=== PATIENT | female | born 1970 ===

== ENCOUNTER 2018-04-12 03:10 | Emergency (ER) | payer OTHER ==
[2018-04-12 04:03] VITALS: BMI 34.8
[2018-04-12 04:11] VITALS: PULSE 78; RESP 18; O2SAT 100
--- NOTE | 2018-04-12 04:40 | ED PDOC ---
Arrival/HPI - General Chief Complaint: Eye Problem Time Seen by Provider: 04/12/18 03:59 Past Medical History - Cardiac Hx Cardiac Disorders: No - Endocrine/Metabolic Hx Hyperthyroidism: Yes - Psychiatric Hx Substance Use: No Family/Social History Smoking Status: Never Smoked Hx Alcohol Use: No Hx Substance Use: No Allergies/Home Meds Allergies/Adverse Reactions: Allergies No Known Allergies Allergy (Unverified 01/16/14 13:15) Physical Exam Vital Signs Temp Pulse Resp BP Pulse Ox 04/12/18 03:40 98.3 F 78 18 147/80 100 Disposition/Present on Arrival - Present on Arrival Any Indicators Present on Arrival: No History of DVT/PE: No History of Uncontrolled Diabetes: No Urinary Catheter: No History of Decub. Ulcer: No History Surgical Site Infection Following: None - Disposition Have Diagnosis and Disposition been Completed?: Yes Diagnosis: Eye irritation, Acute allergic conjunctivitis of left eye Disposition: HOME/ ROUTINE Disposition Time: 04:38 Patient Plan: Discharge Condition: STABLE Discharge Instructions (ExitCare): Conjunctivitis (Noninfectious Pinkeye) (DC) Print Language: LITHUANIAN Additional Instructions: Please avoid rubbing eyes with hands. For eye itchiness, use Clear Eyes lubricating drops Referrals: Lanie Jones MD [Primary Care Provider] - Follow up with primary Forms: [employer] (Telugu)
--- NOTE | 2018-04-12 04:42 | ED PDOC ---
Arrival/HPI - General Chief Complaint: Eye Problem Time Seen by Provider: 04/12/18 03:59 Historian: Patient - History of Present Illness Narrative History of Present Illness (Text): 04/12/18 04:37 48 year old female, with a past medical history that includes chronic sinus issues, presents to the emergency department for evaluation status post left eye pressure. Patient states she woke up 2 hours prior with a feeling of pressure in her left eye. Patient states she also could not see well, and her vision in that eye was blurry. Patient informs that she went to her daughter's room and showed her the eye, which she noticed was red and watery. Patient states her eye feels normal now, and her vision is also normal. Patient denies any fevers, chills, chest pain, shortness of breath, cough, abdominal pain, nausea, vomiting, diarrhea, back pain, neck pain, urinary/bowel changes, or any other complaint. Time/Duration: Prior to Arrival Symptom Onset: Gradual Past Medical History - Provider Review Nursing Documentation Reviewed: Yes - Cardiac Hx Cardiac Disorders: No - Endocrine/Metabolic Hx Hyperthyroidism: Yes - Psychiatric Hx Substance Use: No Family/Social History - Physician Review Nursing Documentation Reviewed: Yes Family/Social History: No Known Family HX Smoking Status: Never Smoked Hx Alcohol Use: No Hx Substance Use: No Allergies/Home Meds Allergies/Adverse Reactions: Allergies No Known Allergies Allergy (Unverified 01/16/14 13:15) Review of Systems - Physician Review All systems were reviewed & negative as marked: Yes - Review of Systems Constitutional: Normal. absent: Fevers, Night Sweats Eyes: Vision Changes, Eye Pain (feeling of pressure, left eye) ENT: Normal Respiratory: Normal. absent: SOB, Cough Cardiovascular: Normal. absent: Chest Pain Gastrointestinal: Normal. absent: Abdominal Pain, Diarrhea, Nausea, Vomiting Genitourinary Female: Normal. absent: Urine Output Changes Musculoskeletal: Normal. absent: Back Pain, Neck Pain Skin: Normal Neurological: Normal Endocrine: Normal Hemo/Lymphatic: Normal Psychiatric: Normal Physical Exam Vital Signs Reviewed: Yes Vital Signs Temp Pulse Resp BP Pulse Ox 04/12/18 03:40 98.3 F 78 18 147/80 100 Temperature: Afebrile Blood Pressure: Normal Pulse: Regular Respiratory Rate: Normal Appearance: Positive for: Well-Appearing, Non-Toxic, Comfortable Pain Distress: None Mental Status: Positive for: Alert and Oriented X 3 - Systems Exam Head: Present: Atraumatic, Normocephalic Pupils: Present: PERRL, Other (Visual accuity of both eyes 20/15; visual accuity of each eye 20/40.) Extroacular Muscles: Present: EOMI Conjunctiva: Present: Normal. No: Other (no corneal abrasions, ulcers, or dendrites vizualized on Fluorescein exam) Mouth: Present: Moist Mucous Membranes Neck: Present: Normal Range of Motion Respiratory/Chest: Present: Clear to Auscultation, Good Air Exchange. No: Respiratory Distress, Accessory Muscle Use Cardiovascular: Present: Regular Rate and Rhythm, Normal S1, S2. No: Murmurs Abdomen: No: Tenderness, Distention, Peritoneal Signs Back: Present: Normal Inspection Upper Extremity: Present: Normal Inspection. No: Cyanosis, Edema Lower Extremity: Present: Normal Inspection. No: Edema Neurological: Present: GCS=15, CN II-XII Intact, Speech Normal Skin: Present: Warm, Dry, Normal Color. No: Rashes Psychiatric: Present: Alert, Oriented x 3, Normal Insight, Normal Concentration Medical Decision Making ED Course and Treatment: 04/12/18 04:47 Impression: 48 year old female presents with pressure and pain in left eye. Plan: -- Reassess and disposition Prior Visits: Notes and results from previous visits were reviewed. Progress Notes: - Scribe Statement The provider has reviewed the documentation as recorded by the Scribe Clint Anne Provider Scribe Attestation: All medical record entries made by the Scribe were at my direction and personally dictated by me. I have reviewed the chart and agree that the record accurately reflects my personal performance of the history, physical exam, medical decision making, and the department course for this patient. I have also personally directed, reviewed, and agree with the discharge instructions and disposition. Disposition/Present on Arrival - Present on Arrival History of DVT/PE: No History of Uncontrolled Diabetes: No Urinary Catheter: No History of Decub. Ulcer: No History Surgical Site Infection Following: None - Disposition Diagnosis: Eye irritation, Acute allergic conjunctivitis of left eye Disposition: HOME/ ROUTINE Patient Problems: Current Active Problems Problem Status Onset Eye irritation Acute Acute allergic conjunctivitis of left eye Acute Condition: STABLE Discharge Instructions (ExitCare): Conjunctivitis (Noninfectious Pinkeye) (DC) Print Language: ALGERIAN Additional Instructions: Please avoid rubbing eyes with hands. For eye itchiness, use Clear Eyes lubricating drops Referrals: Lanie Jones MD [Primary Care Provider] - Follow up with primary Forms: [employer] (Nepali)
[2018-04-12 05:11] VITALS: BP 128/82; TEMP 98
== END 2018-04-12 04:47 | disposition home or self-care (01) ==
LOC: ED 03:10
DX: H10.12 Acute atopic conjunctivitis, left eye (principal); H57.8 Other specified disorders of eye and adnexa

== ENCOUNTER 2018-07-08 12:23 | Observation (INO) | payer OTHER ==
[~2018-07-08 12:23] MED LIST: Pantoprazole 40 mg EC Tab PO SCH
--- NOTE | 2018-07-08 12:42 | ED PDOC ---
Arrival/HPI - General Chief Complaint: Chest Pain Time Seen by Provider: 07/08/18 12:27 Historian: Patient - History of Present Illness Narrative History of Present Illness (Text): 07/08/18 12:37 A 48 year old female, whose past medical history includes hypertension and hyperlipidemia, sent to the emergency department by her primary care doctor for chest pain from earlier today. Patient reports having left sided chest tightness for the past two weeks. sent to er for eval by pmd jarred. Patient denies any fever, chills, shortness of breath, diarrhea, nausea, vomiting, urinary symptoms, back pain, neck pain, headache, dizziness, or any other complaints. PMD: Dr. Jones 07/08/18 15:37 Time/Duration: 4-6 hours (earlier today) Symptom Onset: Gradual Activities at Onset: Light Context: Other (doctors office) Past Medical History - Provider Review Nursing Documentation Reviewed: Yes - Infectious Disease Hx of Infectious Diseases: None - Cardiac Hx Cardiac Disorders: No - Endocrine/Metabolic Hx Hyperthyroidism: Yes - Psychiatric Hx Substance Use: No - Anesthesia Hx Anesthesia: No Hx Anesthesia Reactions: No Hx Malignant Hyperthermia: No Family/Social History - Physician Review Nursing Documentation Reviewed: Yes Family/Social History: No Known Family HX Smoking Status: Never Smoked Hx Alcohol Use: No Hx Substance Use: No Allergies/Home Meds Allergies/Adverse Reactions: Allergies Penicillins Allergy (Verified 07/08/18 12:35) ITCHING Home Medications: Home Meds Medication Instructions Recorded Confirmed RX: No Known Home Med 04/12/18 07/08/18 Review of Systems - Physician Review All systems were reviewed & negative as marked: Yes - Review of Systems Constitutional: absent: Fevers, Night Sweats Respiratory: absent: SOB Cardiovascular: Chest Pain Gastrointestinal: absent: Diarrhea, Nausea, Vomiting Genitourinary Female: absent: Urine Output Changes Musculoskeletal: absent: Back Pain, Neck Pain Neurological: absent: Headache, Dizziness Physical Exam Vital Signs Reviewed: Yes Vital Signs Temp Pulse Resp BP Pulse Ox 07/08/18 12:31 98.3 F 78 19 140/90 99 Temperature: Afebrile Blood Pressure: Normal Pulse: Regular Respiratory Rate: Normal Appearance: Positive for: Well-Appearing, Non-Toxic Mental Status: Positive for: Alert and Oriented X 3 - Systems Exam Head: Present: Atraumatic, Normocephalic Pupils: Present: PERRL Extroacular Muscles: Present: EOMI Conjunctiva: Present: Normal Mouth: Present: Moist Mucous Membranes Neck: Present: Normal Range of Motion Respiratory/Chest: Present: Clear to Auscultation, Good Air Exchange. No: Respiratory Distress, Accessory Muscle Use Cardiovascular: Present: Regular Rate and Rhythm, Normal S1, S2. No: Murmurs Abdomen: No: Tenderness, Distention, Peritoneal Signs Back: Present: Normal Inspection Upper Extremity: Present: Normal Inspection. No: Cyanosis, Edema Lower Extremity: Present: Normal Inspection. No: Edema Neurological: Present: GCS=15, CN II-XII Intact, Speech Normal Skin: Present: Warm, Dry, Normal Color. No: Rashes Psychiatric: Present: Alert, Oriented x 3, Normal Insight, Normal Concentration Medical Decision Making ED Course and Treatment: 07/08/18 12:43 Impression: 48 year old female sent to the emergency department for chest pain. ro acs per neg Plan: -- EKG -- Labs -- CBC -- COAGs -- Chest X-ray -- HCG, qualitative urine -- Urinalysis -- Reassess and disposition Prior Visits: Notes and results from previous visits were reviewed. Progress Notes: 07/08/18 12:47 EKG: Ordered, reviewed, and independently interpreted the EKG. Rate : 70 BPM Rhythm : NSR Interpretation : No ST-wave changes, perc negative. 07/08/18 15:[address] stern, requests obs. asas given. pain free. - RAD Interpretation Radiology Orders: 07/08/18 12:36 CHEST PORTABLE [RAD] Stat - Scribe Statement The provider has reviewed the documentation as recorded by the Mary Beth Azar All medical record entries made by the [employer] were at my direction and personally dictated by me. I have reviewed the chart and agree that the record accurately reflects my personal performance of the history, physical exam, medical decision making, and the department course for this patient. I have also personally directed, reviewed, and agree with the discharge instructions and disposition. Disposition/Present on Arrival - Present on Arrival Any Indicators Present on Arrival: No History of DVT/PE: No History of Uncontrolled Diabetes: No Urinary Catheter: No History of Decub. Ulcer: No History Surgical Site Infection Following: None - Disposition Have Diagnosis and Disposition been Completed?: Yes Diagnosis: Chest pain Disposition: HOSPITALIZED Disposition Time: 12:30 Condition: STABLE
[2018-07-08 13:33] LABS: BASO # 0.03 K/mm3 (0.0-2.0); BASO % 0.5 % (0.0-3.0); EOS # 0.2 (0.0-0.7); EOS % 2.8 % (1.5-5.0); GRAN # 3.88 (1.4-6.5); LYMPH # 1.7 (1.2-3.4); LYMPH % 27.3 % (22.0-35.0); MEAN CELL VOLUME 83.5 fl (80.0-105.0); MEAN CORPUSCULAR HEMOGLOBIN 28.2 pg (25.0-35.0); MEAN CORPUSCULAR HGB CONC 33.8 g/dl (31.0-37.0); MEAN PLATELET VOLUME 10.2 fl (7.0-11.0); MONO # 0.3 (0.1-0.6); MONO % 5.4 % (1.0-6.0); RBC 4.61 10^6/uL (3.5-6.1); RED CELL DISTRIBUTION WIDTH 14.4 % (11.5-14.5); WHITE BLOOD COUNT 6.1 10^3/uL (4.5-11.0)
[2018-07-08 13:43] LABS: INR 1.03; PARTIAL THROMBOPLASTIN TIME 27.2 Seconds (25.1-36.5); PROTHROMBIN TIME 11.8 SECONDS (9.4-12.5)
[2018-07-08 13:46] LABS: ALB/GLOB RATIO 1.1 (1.1-1.8); ALBUMIN 4.1 g/dL (3.0-4.8); ALT/SGPT 20 U/L (7-56); AST/SGOT 24 U/L (14-36); BLOOD UREA NITROGEN 11 mg/dL (7-21); CALCIUM 8.7 mg/dL (8.4-10.5); GFR NON-AFRICAN AMERICAN > 60
[2018-07-08 14:03] LABS: B-TYPE NATRIURETIC PEPTIDE 75.9 pg/mL (0-450); TROPONIN I < 0.01 ng/mL
[2018-07-08 14:04] LABS: URINE BILIRUBIN NEGATIVE (NEGATIVE); URINE BLOOD NEGATIVE (NEGATIVE); URINE GLUCOSE (UA) NEGATIVE (NEGATIVE); URINE LEUKOCYTE ESTERASE NEGATIVE Leu/uL (NEGATIVE); URINE PROTEIN NEGATIVE mg/dL (<30 mg/dL); URINE UROBILINOGEN 0.2 E.U./dL (<1 E.U./dL)
[2018-07-08 14:05] LABS: URINE APPEARANCE CLEAR (CLEAR); URINE COLOR YELLOW (YELLOW)
--- NOTE | 2018-07-08 16:40 | RAD ---
Date of service: 07/08/2018 HISTORY: Chest pain COMPARISON: No prior. FINDINGS: LUNGS: No active pulmonary disease. PLEURA: No significant pleural effusion identified, no pneumothorax apparent. CARDIOVASCULAR: No atherosclerotic calcification present Normal. OSSEOUS STRUCTURES: No significant abnormalities. VISUALIZED UPPER ABDOMEN: Normal. OTHER FINDINGS: None. IMPRESSION: No active disease.
[2018-07-08 18:21] VITALS: BMI 36.7
--- NOTE | 2018-07-08 18:44 | CARD ---
APPROVED REPORT Date of service: 07/08/2018 EKG Measurement Heart [id number] <Conclusion> Normal sinus rhythm Normal ECG
[2018-07-08 21:02] LABS: TROPONIN I < 0.01 ng/mL
[2018-07-08] MEDS ORDERED: CHLORZOXAZONE 500 MG PO SCH (22:30)
[2018-07-09 03:02] VITALS: RESP 18
[2018-07-09] MEDS ORDERED: Levothyroxine 100 MCG TAB PO SCH ×2 (06:00→10:00)
[2018-07-09 07:06] LABS: HDL CHOLESTEROL 41 mg/dL (29-60)
[2018-07-09 07:16] LABS: LDL CHOLESTEROL 102 mg/dL (0-129)
[2018-07-09 07:18] LABS: TROPONIN I < 0.01 ng/mL
--- NOTE | 2018-07-09 08:52 | CON ---
DATE OF CONSULTATION: 07/08/2018 LOCATION: The patient is in Room 266, Bed 1. REASON FOR CONSULTATION: Chest pain, hypertension, hyperlipidemia, hypothyroidism. HISTORY OF PRESENT ILLNESS: A 48-year-old female. She states that she was sleeping last night and she woke up to go to bathroom. At that time, she felt some pressure-like pain in the left border of the sternum in the mid area, which then traveled down under the left breast, but there is no radiation to the arms or neck or back. The patient states that in the morning when she woke up, she was burping a lot. The patient denies any exertional chest pain. She said this episode happened second time in the last 2 weeks and both times it happened at rest. The patient is a known case of hypertension, hypothyroidism, hyperlipidemia. PAST MEDICAL HISTORY: Positive for hypertension, hypothyroidism, high cholesterol. 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 FAMILY HISTORY: Mother is diabetic. PERSONAL HISTORY: Denies smoking. Denies drinking. HOME MEDICATIONS: Lipitor, dose not known to the patient, one tablet daily; chlorzoxazone 500 mg p.o. t.i.d.; enalapril/hydrochlorothiazide 10/25 mg one tablet daily; Singulair 10 mg h.s.; levothyroxine 100 mcg p.o. daily; Xyzal 5 mg p.o. daily; Neurontin 1 tablet p.o. h.s. ALLERGIES: THE PATIENT IS ALLERGIC TO PENICILLIN. REVIEW OF SYSTEMS: All the systems are reviewed and are positive as mentioned in the history, otherwise negative. PHYSICAL EXAMINATION: VITAL SIGNS: Blood pressure 119/82, respirations 21, pulse 64, temperature 98.6. HEENT: Head is normocephalic. Eyes: Pupils normal. Conjunctivae normal. Nose and throat normal. NECK: JVP low. Carotids equal. THORAX: AP diameter normal. LUNGS: Clear. CARDIOVASCULAR: S1, S2. CHEST: The patient does not have any local tenderness on the chest wall. ABDOMEN: Soft, nontender. No organomegaly. Bowel sounds normal. EXTREMITIES: No clubbing. No cyanosis. LABORATORY DATA: WBC 6.1, hemoglobin 13.0, hematocrit 38.5, platelets 373,000. Sodium 141, potassium 4.3, BUN 11, creatinine 0.8. Troponin x2 negative. AST and ALT normal. NT-proB natriuretic peptide, total protein, albumin and globulin normal. Chest x-ray clear. EKG shows regular sinus rhythm. DIAGNOSES: Atypical chest pain, can be esophageal spasm; hypertension; high cholesterol; hypothyroidism. PLAN: We will start Protonix 40 p.o. daily. We will order echocardiogram, and if the patient stays here, we will do nuclear stress test on Wednesday. Otherwise, the patient will do nuclear stress test as an outpatient. We will follow with you. Menyd Castorena MD
[2018-07-09] MEDS ORDERED: Ergocalciferol 50,000 Intl Units Cap PO SCH (10:00)
[2018-07-09] MEDS ORDERED: Non Formulary Medication (Levocetirizine Dihydrochloride [Xyzal] 5 MG) PO SCH (10:00)
[2018-07-09 12:57] VITALS: BP 105/70; TEMP 98
[2018-07-09 14:59] VITALS: O2SAT 100
[2018-07-09 15:05] VITALS: PULSE 65
--- NOTE | 2018-07-11 12:38 | CARD ---
APPROVED REPORT Date of service: 07/09/2018 EXAM: Two-dimensional and M-mode echocardiogram with Doppler and color Doppler. INDICATION CP, HTN 2D DIMENSIONS IVSd1.1 (0.7-1.1cm)LVDd4.6 (3.9-5.9cm) PWd1.0 (0.7-1.1cm)LVDs3.2 (2.5-4.0cm) FS (%) 31.2 %LVEF (%)59.1 (>50%) M-Mode DIMENSIONS Left Atrium (MM)3.70 (2.5-4.0cm)Aortic Root2.70 (2.2-3.7cm) Aortic Cusp Exc.2.10 (1.5-2.0cm) Aortic Valve AoV Peak Mhhplpld329.0cm/Panchito Peak GR.14mmHg Mitral Valve MV E Eelfxdrt91.3cm/sMV A Dpxqcsvg68.1cm/sE/A ratio1.3 TDI Lateral E' Peak V11.40cm/sMedial E' Peak V7.80cm/sE/Lateral E'8.0 E/Medial E'11.7 Tricuspid Valve TR Peak Uvqmthkr189tb/sRAP [id number] Peak Gr.25mmHg [id number] LEFT VENTRICLE The left ventricle is normal size. There is normal left ventricular wall thickness. The left ventricular function is normal.EF-60% There is normal LV segmental wall motion. The left ventricular diastolic function is normal. No left ventricle thrombus noted on this study. There is no ventricular septal defect visualized. There is no left ventricular aneurysm. There is no mass noted in the left ventricle. RIGHT VENTRICLE The right ventricle is normal size. There is normal right ventricular wall thickness. The right ventricular systolic function is normal. ATRIA The left atrium size is normal. The right atrium size is normal. The interatrial septum is intact with no evidence for an atrial septal defect. AORTIC VALVE The aortic valve is normal in structure. No aortic regurgitation is present. There is no aortic valvular stenosis. There is no aortic valvular vegetation. MITRAL VALVE The mitral valve is thickened but opens well. Mitral regurgitation is trace. There is no mitral valve stenosis. There is no evidence of mitral valve prolapse. TRICUSPID VALVE The tricuspid valve leaflets are thickened , but open well. There is trace tricuspid regurgitation.RVSP-35 mmof hg. There is no tricuspid valve stenosis. There is no tricuspid valve prolapse or vegetation. PULMONIC VALVE The pulmonary valve is normal in structure. There is no pulmonic valvular regurgitation. There is no pulmonic valvular stenosis. GREAT VESSELS The aortic root is normal in size. The ascending aorta is normal in size. The pulmonary artery is normal. The IVC is normal in size and collapses >50% with inspiration. PERICARDIAL EFFUSION There is no pleural effusion. There is no pericardial effusion. <Conclusion> Normal Chamber Size. EF-60% trace MR/TR RVSP-35 mmof Hg.
== END 2018-07-09 17:15 | disposition home or self-care (01) ==
LOC: ED 12:23 → ERH 14:03 → 2RNO 16:30
PROVIDERS: ADMIT Internal Medicine; ATTEND Internal Medicine
DX: R07.89 Other chest pain (principal); E03.9 Hypothyroidism, unspecified; E78.5 Hyperlipidemia, unspecified; E78.00 Pure hypercholesterolemia, unspecified; I10 Essential (primary) hypertension; K22.4 Dyskinesia of esophagus; Z83.3 Family history of diabetes mellitus
CPT/HCPCS: 36415; 71045; 80053; 80061; 81003; 82550; 83615; 83735; 83880; 84443; 84484; 84703; 85025; 85610; 85730; 93005; 93306; 99285; G0378

== ENCOUNTER 2018-07-29 08:10 | Outpatient (CLI) | payer OTHER | END 2018-07-29 08:11 | disposition home or self-care (01) | LOC: CARDIO 08:10 ==